=== PATIENT | female | born 1965 | race Caucasian/White ===

== ENCOUNTER 2016-06-27 04:08 | Emergency (ER) | payer OTHER ==
[~2016-06-27] VITALS: Ht 175.3 cm; Wt 89.1 kg
[~2016-06-27 04:08] MED LIST: ALBUTEROL0.09 MG/A1 IH; AMOXICILLI400 MG/51 PO; ASPIR-LOW81 MG PO; ASPIR-LOX325 MG PO; ASPIRIN E.C. 8181 MG PO; AUGMENTIN 875 M1 TAB PO; BENADRYL25 M2 PO; CALAN80 MG PO; DILANTIN 100MG100 MG PO; FERROUS SU325 MG/TAB PO; FLEXERIL10 MG PO; GENTAMICIN EYE D5 ML OU; KEPPRA1000 MG PO; LEXAPRO 10MG10 MG PO; LIPITOR 40MG TA40 MG PO; LORTAB 5/500 501 TAB PO; MAXALT5 MG PO; MULTIPLE VITAMI1 TAB PO; MVI; NAPROSYN; NAPROSYN500 MG PO; NAPROXEN 3375 MG/TAB PO; NORCO 325 MG-51 TAB PO; NORCO 325 MG-7.1 TAB PO; PLAVIX 75MG TAB75 MG PO; PRILOSEC 20MG20 MG PO; PRILOSEC10 MG PO; VENTOLIN0.09 MG IH; VERAPAMIL; VIMPAT200 MG PO; ZANTAC 150150 MG PO; ZOLOFT 100MG100 MG PO; ZOLOFT 50MG50 MG PO; ZYRTEC ALLERGY10 MG PO; ZYRTEC5 MG PO; cold med; migraine med
[2016-06-27 04:10] VITALS: TEMP 97.6
[2016-06-27 05:10] LABS: BASO # 0.1 (0.0-0.2); BASO % 0.8 % (0.0-2.0); EOS # 0.8 (0.0-0.7); EOS % 11.2 % (0-4.0); GRAN # 4.5 (1.4-6.5); GRAN % 60.8 % (42.2-75.2); HEMATOCRIT 37.7 % (37.0-47.0); HEMOGLOBIN 13.1 g/dl (12.5-16.0); LYMPH # 1.5 (1.2-3.4); LYMPH % 20.2 % (20.0-51.0); MEAN CELL VOLUME 94 fl (80.0-100.0); MEAN CORPUSCULAR HEMOGLOBIN 33 pg (27.0-31.0); MEAN CORPUSCULAR HGB CONC 35 g/dl (33.0-37.0); MEAN PLATELET VOLUME 11.8 fl (7.4-10.4); MONO # 0.5 (0.1-0.6); MONO % 6.9 % (1.7-9.3); PLATELET COUNT 159 K/mm3 (130-400); RED BLOOD COUNT 4.02 M/mm3 (4.10-5.30); REDCELL DISTRIBUTION WIDTH-CV 14.9 % (11.5-14.5); WHITE BLOOD COUNT 7.4 K/mm3 (4.8-10.8)
[2016-06-27 05:22] LABS: CALCIUM 8.8 mg/dL (8.4-10.2); CREATININE, serum 0.69 mg/dL (0.52-1.25); POTASSIUM 3.4 mmol/L (3.4-5.0)
[2016-06-27 06:19] VITALS: BP 118/67; PULSE 61
== END 2016-06-27 06:20 | disposition home or self-care (01) ==
LOC: COL.ER 04:08
PROVIDERS: Emergency Medicine
DX: G40.909 Epilepsy, unspecified, not intractable, without status epilepticus (principal); R53.81 Other malaise

== ENCOUNTER 2016-08-29 10:47 | Emergency (ER) | payer OTHER ==
[~2016-08-29] VITALS: Ht 175.3 cm; Wt 86.4 kg
[2016-08-29 10:49] VITALS: TEMP 96.8
[2016-08-29] MEDS ORDERED: KEPPRA1000 MG PO (10:54)
[2016-08-29] MEDS ORDERED: CELEBREX50 MG PO (10:56)
[2016-08-29] MEDS ORDERED: TOPAMAX 100MG100 M1 PO (10:56)
[2016-08-29] MEDS ORDERED: CELEBREX 1100 MG/CAP PO (11:07)
[2016-08-29 11:29] LABS: BASO % 0.4 % (0.0-2.0); EOS # 0.3 (0.0-0.7); GRAN # 5.4 (1.4-6.5); GRAN % 71.8 % (42.2-75.2); HEMATOCRIT 38.1 % (37.0-47.0); HEMOGLOBIN 12.8 g/dl (12.5-16.0); LYMPH # 1.3 (1.2-3.4); LYMPH % 17.3 % (20.0-51.0); MEAN CELL VOLUME 94 fl (80.0-100.0); MEAN CORPUSCULAR HEMOGLOBIN 32 pg (27.0-31.0); MEAN CORPUSCULAR HGB CONC 34 g/dl (33.0-37.0); MEAN PLATELET VOLUME 11.1 fl (7.4-10.4); MONO # 0.5 (0.1-0.6); MONO % 6.4 % (1.7-9.3); PLATELET COUNT 184 K/mm3 (130-400); RED BLOOD COUNT 4.05 M/mm3 (4.10-5.30); WHITE BLOOD COUNT 7.5 K/mm3 (4.8-10.8)
[2016-08-29 11:44] LABS: ADJUSTED CALCIUM 9.2 mg/dL (8.4-10.2); ALBUMIN 3.6 gm/dL (3.5-5.0); BILIRUBIN,TOTAL 0.5 mg/dL (0.0-1.0); CALCIUM 8.9 mg/dL (8.4-10.2); CREATININE, serum 0.66 mg/dL (0.52-1.25); POTASSIUM 3.9 mmol/L (3.4-5.0); TOTAL PROTEIN 6.1 gm/dL (6.4-8.2)
[2016-08-29 12:00] LABS: PROLACTIN 30.7 ng/mL (3.0-18.6)
[2016-08-29] MEDS ORDERED: VALIUM 5MG T5 MG/TAB PO (12:01)
[2016-08-29 13:36] VITALS: BP 113/76; PULSE 62
== END 2016-08-29 13:37 | disposition home or self-care (01) ==
LOC: COL.ER 10:47
PROVIDERS: Emergency Medicine
DX: G40.802 Other epilepsy, not intractable, without status epilepticus (principal)
CPT/HCPCS: J2060; J3360; J7030; Q2009

== ENCOUNTER 2016-09-17 07:55 | Day surgery (SDC) | payer OTHER ==
[~2016-09-17] VITALS: Ht 175.3 cm; Wt 86.1 kg
[~2016-09-17 07:55] MED LIST changes: +CELEBREX 1100 MG/CAP PO; +CELEBREX50 MG PO; +TOPAMAX 100MG100 M1 PO; +VALIUM 5MG T5 MG/TAB PO
[2016-09-17 08:54] VITALS: BP 102/72; PULSE 64; TEMP 97.5
[2016-09-17] MEDS ORDERED: KEPPRA 500MG500 MG PO (08:58)
[2016-09-17] MEDS ORDERED: DILANTIN 100MG100 MG PO (08:59)
[2016-09-17] MEDS ORDERED: MAXALT10 MG PO (09:00)
[2016-09-17] MEDS ORDERED: TOPAMAX 100MG100 M1 PO (09:00)
[2016-09-17 09:55] VITALS: BP 87/66; PULSE 64; TEMP 97.5
[2016-09-17 10:10] VITALS: BP 94/55; PULSE 59
[2016-09-17 10:25] VITALS: BP 107/65; PULSE 62
== END 2016-09-17 10:40 | disposition home or self-care (01) ==
LOC: SDCO 07:55
DX: Z12.11 Encounter for screening for malignant neoplasm of colon (principal)
CPT/HCPCS: J2250; J3010; J7030

== ENCOUNTER 2016-10-16 21:08 | Emergency (ER) | payer OTHER ==
[~2016-10-16] VITALS: Ht 175.3 cm; Wt 81.8 kg
[~2016-10-16 21:08] MED LIST changes: +KEPPRA 500MG500 MG PO; +MAXALT10 MG PO
[2016-10-16 21:13] VITALS: TEMP 97.7
[2016-10-16 21:28] LABS: BASO % 0.4 % (0.0-2.0); EOS # 0.3 (0.0-0.7); EOS % 2.9 % (0-4.0); GRAN # 6.7 (1.4-6.5); GRAN % 67.2 % (42.2-75.2); HEMATOCRIT 40.5 % (37.0-47.0); HEMOGLOBIN 13.6 g/dl (12.5-16.0); LYMPH # 2.2 (1.2-3.4); LYMPH % 22.2 % (20.0-51.0); MEAN CELL VOLUME 93 fl (80.0-100.0); MEAN CORPUSCULAR HEMOGLOBIN 31 pg (27.0-31.0); MEAN CORPUSCULAR HGB CONC 34 g/dl (33.0-37.0); MONO # 0.7 (0.1-0.6); MONO % 7.1 % (1.7-9.3); PLATELET COUNT 202 K/mm3 (130-400); RED BLOOD COUNT 4.36 M/mm3 (4.10-5.30); REDCELL DISTRIBUTION WIDTH-CV 13.2 % (11.5-14.5)
[2016-10-16 21:38] LABS: ADJUSTED CALCIUM 9.2 mg/dL (8.4-10.2); ALANINE AMINOTRANSFERASE 33 U/L (9-52); ALBUMIN 4.2 gm/dL (3.5-5.0); ALKALINE PHOSPHATASE 105 U/L (50-136); ANION GAP 11 mmol/L (7-16); BILIRUBIN,TOTAL 0.4 mg/dL (0.0-1.0); BLOOD UREA NITROGEN 18 mg/dL (7-17); CALCIUM 9.4 mg/dL (8.4-10.2); CARBON DIOXIDE 24 mmol/L (22-30); CHLORIDE 108 mmol/L (98-107); CREATININE, serum 0.69 mg/dL (0.52-1.25); GLUCOSE 87 mg/dL (74-106); POTASSIUM 3.6 mmol/L (3.4-5.0); SODIUM 142 mmol/L (137-145); TOTAL PROTEIN 6.5 gm/dL (6.4-8.2)
[2016-10-16 21:55] LABS: PROLACTIN 16.3 ng/mL (3.0-18.6)
[2016-10-16 21:56] LABS: TROPONIN-I < 0.012 ng/mL (0.000-0.034)
[2016-10-16 22:59] VITALS: BP 131/86; PULSE 68
== END 2016-10-16 22:59 | disposition home or self-care (01) ==
LOC: COL.ER 21:08
PROVIDERS: Emergency Medicine
DX: G40.909 Epilepsy, unspecified, not intractable, without status epilepticus (principal); L29.9 Pruritus, unspecified; T42.0X5A Adverse effect of hydantoin derivatives, initial encounter; Y92.538 Other ambulatory health services establishments as the place of occurrence of the external cause
CPT/HCPCS: J1200; J2060; J7030; Q2009

== ENCOUNTER 2016-11-07 19:02 | Emergency (ER) | payer OTHER ==
[~2016-11-07] VITALS: Ht 172.7 cm; Wt 84.5 kg
[2016-11-07 19:05] VITALS: TEMP 98
[2016-11-07 19:45] LABS: BASO % 0.5 % (0.0-2.0); EOS # 0.4 (0.0-0.7); EOS % 5.2 % (0-4.0); GRAN # 5.3 (1.4-6.5); GRAN % 64.3 % (42.2-75.2); HEMATOCRIT 38.6 % (37.0-47.0); HEMOGLOBIN 12.8 g/dl (12.5-16.0); LYMPH # 1.8 (1.2-3.4); LYMPH % 21.8 % (20.0-51.0); MEAN CELL VOLUME 92 fl (80.0-100.0); MEAN CORPUSCULAR HEMOGLOBIN 30 pg (27.0-31.0); MEAN CORPUSCULAR HGB CONC 33 g/dl (33.0-37.0); MEAN PLATELET VOLUME 10.7 fl (7.4-10.4); MONO # 0.7 (0.1-0.6); MONO % 8.1 % (1.7-9.3); PLATELET COUNT 205 K/mm3 (130-400); RED BLOOD COUNT 4.21 M/mm3 (4.10-5.30); WHITE BLOOD COUNT 8.3 K/mm3 (4.8-10.8)
[2016-11-07 19:57] LABS: ADJUSTED CALCIUM 8.9 mg/dL (8.4-10.2); ALBUMIN 3.7 gm/dL (3.5-5.0); BILIRUBIN,TOTAL 0.4 mg/dL (0.0-1.0); CALCIUM 8.7 mg/dL (8.4-10.2); CREATININE, serum 0.62 mg/dL (0.52-1.25); POTASSIUM 3.6 mmol/L (3.4-5.0); TOTAL PROTEIN 5.9 gm/dL (6.4-8.2)
[2016-11-07 20:13] LABS: PROLACTIN 27.6 ng/mL (3.0-18.6)
[2016-11-07 21:03] VITALS: BP 115/67; PULSE 77
[2016-11-07 21:04] LABS: PH 7 (5-8); SQUAMOUS EPITHELIAL 0-2 /hpf; URINE APPEARANCE Clear; URINE BACTERIA None Seen /hpf; URINE BILIRUBIN Negative (NEGATIVE); URINE BLOOD Negative (NEGATIVE); URINE COLOR Yellow; URINE GLUCOSE Negative (NEGATIVE); URINE KETONE Negative (NEGATIVE); URINE RBC 0-2 /hpf; URINE UROBILINOGEN Negative (NEGATIVE); URINE WBC 0-2 /hpf
== END 2016-11-07 21:05 | disposition home or self-care (01) ==
LOC: COL.ER 19:02
PROVIDERS: Emergency Medicine
DX: R56.9 Unspecified convulsions (principal); I10 Essential (primary) hypertension; G43.909 Migraine, unspecified, not intractable, without status migrainosus; F17.210 Nicotine dependence, cigarettes, uncomplicated
CPT/HCPCS: J2060; J7030